=== PATIENT | male | born 1985 | race Caucasian/White ===

== ENCOUNTER 2023-01-27 16:01 | Emergency (ER) | payer BC, OTHER ==
[~2023-01-27] VITALS: Ht 180.3 cm; Wt 92.8 kg
[~2023-01-27 16:01] MED LIST: HYDR-3715 PO
[2023-01-27 18:46] LABS: BASO # 0.1 10^3/uL (0.0-0.2); BASO % 0.9 % (0.0-1.0); EOS # 0.4 10^3/uL (0.0-0.5); EOS % 3.5 % (0.0-3.0); HEMATOCRIT 45.2 % (42.0-52.0); HEMOGLOBIN 15.6 g/dl (13.5-17.5); LYMPH # 2.4 10^3/uL (1.5-5.0); LYMPH % 23.8 % (24.0-44.0); MEAN CORPUSCULAR HEMOGLOBIN 31.1 pg (27.0-33.0); MEAN CORPUSCULAR HGB CONC 34.5 g/dl (32.0-36.5); MEAN CORPUSCULAR VOLUME 90.2 fl (80.0-96.0); MONO # 0.8 10^3/uL (0.0-0.8); MONO % 7.7 % (2.0-8.0); NEUTROPHILS # 6.6 10^3/uL (1.5-8.5); NEUTROPHILS % 63.8 % (36.0-66.0); PLATELET COUNT, AUTOMATED 353 10^3/uL (150-450); RED BLOOD COUNT 5.01 10^6/uL (4.30-6.10); WHITE BLOOD COUNT 10.3 10^3/uL (4.0-10.0)
[2023-01-27 18:51] LABS: ERYTHROCYTE SEDIMENTATION RATE 19 mm/hr (0-15)
[2023-01-27 19:20] LABS: BLOOD UREA NITROGEN 10 MG/DL (9-23); CALCIUM LEVEL 9.2 MG/DL (8.5-10.1); CARBON DIOXIDE LEVEL 28 MMOL/L (20-31); CHLORIDE LEVEL 103 MMOL/L (98-107); CREATININE FOR GFR 0.79 MG/DL (0.70-1.30); GLOMERULAR FILTRATION RATE > 60.0 (>60); GLUCOSE, FASTING 90 MG/DL (60-100); POTASSIUM SERUM 4.1 MMOL/L (3.5-5.1); SODIUM LEVEL 139 MMOL/L (136-145)
[2023-01-27] MEDS ORDERED: NORCO, ANEXSIA 5/325MG TABLET (HYDROcodone/ACETAMINOPHEN) PO ONE (20:20)
[2023-01-27 20:53] VITALS: BP 131/83; TEMP 98; O2SAT 99
[2023-01-27] MEDS ORDERED: DOXY-443 PO (21:14)
[2023-01-27] MEDS ORDERED: DOXYCYCLINE HYCLATE 100MG TABLET PO ONE (21:15)
== END 2023-01-27 21:33 | disposition home or self-care (01) ==
LOC: M ED 16:01
DX: L02.213 Cutaneous abscess of chest wall (principal); Z79.2 Long term (current) use of antibiotics

== ENCOUNTER 2023-05-25 16:26 | Emergency (ER) | payer BC ==
[~2023-05-25] VITALS: Ht 177.8 cm; Wt 100.7 kg
[~2023-05-25 16:26] MED LIST changes: +DOXY-443 PO
[2023-05-25 18:36] VITALS: BP 137/85; TEMP 97.8; O2SAT 100
[2023-05-25] MEDS ORDERED: DOXY-443 PO (19:09)
[2023-05-25] MEDS: DOXYCYCLINE HYCLATE 100MG TABLET PO ONE (19:09)
== END 2023-05-25 19:22 | disposition home or self-care (01) ==
LOC: M ED 16:26
DX: L02.811 Cutaneous abscess of head [any part, except face] (principal); Z79.2 Long term (current) use of antibiotics

== ENCOUNTER 2023-10-07 21:06 | Observation (INO) | payer BC, SELFPAY ==
[~2023-10-07] VITALS: Ht 177.8 cm; Wt 97.6 kg
[~2023-10-07 21:06] MED LIST changes: +DOXY-323 PO; -DOXY-443 PO
[2023-10-07] MEDS: NS 1,000 ML IV ONE (23:43)
[2023-10-07] MEDS: ONDANSETRON 4MG 2ML VIAL IV ONE (23:44)
[2023-10-07] MEDS: MORPHINE 2 MG/ML 1ML VIAL IV ONE (23:44)
[2023-10-08 00:20] LABS: BLOOD UREA NITROGEN 6 MG/DL (9-23); CALCIUM LEVEL 9.4 MG/DL (8.5-10.1); CARBON DIOXIDE LEVEL 26 MMOL/L (20-31); CHLORIDE LEVEL 106 MMOL/L (98-107); GLOMERULAR FILTRATION RATE > 60.0 (>60); GLUCOSE, FASTING 89 MG/DL (60-100); SODIUM LEVEL 138 MMOL/L (136-145)
[2023-10-08] MEDS ORDERED: ISOVUE-370 76% 100ML VIAL As Ordered ONE (00:23)
[2023-10-08 00:41] LABS: BASO # 0.1 10^3/uL (0.0-0.2); BASO % 0.4 % (0.0-1.0); EOS # 0.1 10^3/uL (0.0-0.5); EOS % 0.9 % (0.0-3.0); HEMATOCRIT 44.8 % (42.0-52.0); HEMOGLOBIN 15.8 g/dl (13.5-17.5); LYMPH % 15.3 % (24.0-44.0); MEAN CORPUSCULAR HEMOGLOBIN 31.5 pg (27.0-33.0); MEAN CORPUSCULAR HGB CONC 35.3 g/dl (32.0-36.5); MEAN CORPUSCULAR VOLUME 89.4 fl (80.0-96.0); MONO # 1.4 10^3/uL (0.0-0.8); MONO % 10.3 % (2.0-8.0); NEUTROPHILS # 9.7 10^3/uL (1.5-8.5); NEUTROPHILS % 72.7 % (36.0-66.0); PLATELET COUNT, AUTOMATED 309 10^3/uL (150-450); RED BLOOD COUNT 5.01 10^6/uL (4.30-6.10); WHITE BLOOD COUNT 13.4 10^3/uL (4.0-10.0)
[2023-10-08] MEDS: AMPICILLIN SOD/SULBACTAM SOD 3 GM in D5W MINI-BAG PLUS 100 ML IV ONE (01:46)
[2023-10-08 02:05] VITALS: BP 154/79; TEMP 97.3
[2023-10-08 02:17] VITALS: O2SAT 100
[2023-10-08 02:27] LABS: ERYTHROCYTE SEDIMENTATION RATE 39 mm/hr (0-15)
[2023-10-08] MEDS ORDERED: ACETAMINOPHEN TAB 650MG DOSE (2X325MG) PO PRN (02:30)
[2023-10-08] MEDS ORDERED: VANCOMYCIN HCL 750 MG, VIAL MATE ADAPTER 1 EACH in D5W 250 ML IV SCH (02:30)
[2023-10-08] MEDS ORDERED: MOM 30ML SUSPENSION UDC PO PRN (02:30)
[2023-10-08 02:57] LABS: INR 1.14; PARTIAL THROMBOPLASTIN TIME 30.2 SECONDS (24.8-34.2); PROTHROMBIN TIME 14.2 SECONDS (12.5-14.5)
[2023-10-08 03:26] LABS: PROCALCITONIN 0.06 ng/ml
[2023-10-08 03:35] LABS: BARBITURATES URINE NEGATIVE (NEGATIVE); BENZODIAZEPINES URINE NEGATIVE (NEGATIVE); COCAINE METABOLITE URINE NEGATIVE (NEGATIVE); METHADONE URINE NEGATIVE (NEGATIVE); PHENCYCLIDINE URINE NEGATIVE (NEGATIVE)
[2023-10-08 03:48] LABS: AMPHETAMINES LEVEL URINE POSITIVE (NEGATIVE); CANNABINOIDS URINE POSITIVE (NEGATIVE); OPIATES URINE POSITIVE (NEGATIVE)
[2023-10-08] MEDS ORDERED: VANCOMYCIN HCL 1,000 MG, VIAL MATE ADAPTER 1 EACH in D5W 250 ML IV SCH (04:00)
[2023-10-08] MEDS ORDERED: CLIN150C17 PO (04:10)
[2023-10-08] MEDS ORDERED: VANCOMYCIN HCL 1,000 MG, VIAL MATE ADAPTER 1 EACH in D5W 250 ML IV ONE (05:00)
[2023-10-08] MEDS ORDERED: AMPICILLIN SOD/SULBACTAM SOD 3 GM in D5W MINI-BAG PLUS 100 ML IV SCH (08:00)
[2023-10-08] MEDS ORDERED: DOCUSATE SODIUM 100MG CAPSULE PO SCH (09:00)
== END 2023-10-08 03:52 | disposition left against medical advice (07) ==
LOC: M ED 21:06 → M ED INP 21:07 → M MS5PR 10-08 03:33
PROVIDERS: ADMIT Student in an Organized Health Care Education/Training Program; ATTEND Student in an Organized Health Care Education/Training Program
DX: L03.211 Cellulitis of face (principal); Z53.21 Procedure and treatment not carried out due to patient leaving prior to being seen by health care provider
CPT/HCPCS: 70491; 80048; 80307; 83605; 84145; 85025; 85610; 85652; 85730; 86140; 87040; 87641; 96365; 96375; 99284; J0295; J2405; Q9967